=== PATIENT | male | born 1935 | race African-American/Black ===

== ENCOUNTER 2018-08-27 17:04 | Emergency (ER) | payer MEDICARE, MEDICAID ==
[~2018-08-27] VITALS: Ht 175.3 cm; Wt 73.0 kg
[~2018-08-27 17:04] MED LIST: FLUT1DIS INH; LORA10TA7 PO
[2018-08-27 20:00] LABS: CLARITY URINE TURBID (CLEAR); COLOR URINE ORANGE (YELLOW); KETONES URINE NEGATIVE (NEGATIVE); LEUKOCYTE ESTERASE URINE 3+ (NEGATIVE); NITRITE URINE NEGATIVE (NEGATIVE); OCCULT BLOOD URINE 3+ (NEGATIVE); PH URINE 7.5 (4.5-8.0); PROTEIN URINE 4+ (NEGATIVE); SPECIFIC GRAVITY URINE 1.018 (1.005-1.030)
[2018-08-27 20:50] VITALS: BP 154/84
[2018-09-02] MEDS ORDERED: ASPI-1159 PO (05:14)
[2018-09-02] MEDS ORDERED: AMLO10TA80 PO (05:14)
[2018-09-02] MEDS ORDERED: MONT10TA24 PO (05:14)
== END 2018-08-27 20:53 | disposition home or self-care (01) ==
LOC: ER 17:04
DX: N40.1 Benign prostatic hyperplasia with lower urinary tract symptoms (principal); R33.8 Other retention of urine; N39.0 Urinary tract infection, site not specified
CPT/HCPCS: 51702; 87077; 87186; 99284; A4315

== ENCOUNTER 2019-04-01 14:42 | Emergency (ER) | payer MEDICARE, MEDICAID ==
[~2019-04-01] VITALS: Ht 175.3 cm; Wt 73.0 kg
[~2019-04-01 14:42] MED LIST changes: +AMLO10TA80 PO; +ASPI-1159 PO; +MONT10TA24 PO
[2019-04-01] MEDS ORDERED: METHYLPREDNISOLONE SOD SUCC 125 MG/2 ML VIAL IV STA (15:29)
[2019-04-01] MEDS ORDERED: IPRATROPIUM BROMIDE (0.02%) 0.5MG/2.5ML NEB HHN STA (15:29)
[2019-04-01] MEDS ORDERED: ALBUTEROL (0.083%) 2.5MG/3ML NEB HHN STA (15:29)
[2019-04-01] MEDS ORDERED: MAGNESIUM 2 G PREMIX 50 ML IV ONE (15:30)
[2019-04-01 16:06] LABS: HEMATOCRIT. 39.9 % (42.0-52.0); HEMOGLOBIN. 13.1 g/dL (14.0-18.0); MEAN CORPUSCULAR HEMOGLOBIN 27.5 pg (28.0-32.0); MEAN CORPUSCULAR VOLUME 83.7 fL (80.0-94.0); PLATELET 257 x1000/uL (130-400); RED BLOOD CELL COUNT 4.76 mill/uL (4.7-6.1); RED CELL DISTRIBUTION WIDTH 16.6 % (11.6-14.6)
[2019-04-01 16:12] LABS: CHLORIDE 106 mEq/L (98-107)
[2019-04-01 16:14] LABS: INR 1.1; PARTIAL THROMBOPLASTIN TIME 30.7 sec (23.4-31.0); PROTHROMBIN TIME 11.2 sec (9.6-11.0)
[2019-04-01] MEDS ORDERED: PREDNISONE 20MG TABLET PO ONE (17:15)
[2019-04-01 17:29] LABS: PLATELET ESTIMATE NORMAL
[2019-04-01 18:41] VITALS: BP 117/70
== END 2019-04-01 18:53 | disposition home or self-care (01) ==
LOC: ER 15:56 → CANBEDREQ 20:53
DX: J44.1 Chronic obstructive pulmonary disease with (acute) exacerbation (principal); I10 Essential (primary) hypertension
CPT/HCPCS: 36415; 71045; 80053; 83605; 83690; 83880; 84145; 84484; 85025; 85610; 85730; 87040; 93005; 94644; 96365; 96375; 99285; J2930; J3475; J7512; J7611

== ENCOUNTER → 2022-02-06 | Outpatient (CLI) | payer MEDICARE, MEDICAID ==
[~2022-02-06] MED LIST changes: -ASPI-1159 PO; +ASPI-1497 PO; -MONT10TA24 PO; +MONT10TA32 PO
== END | disposition home or self-care (01) ==
LOC: CT 09:22
PROVIDERS: ATTEND Internal Medicine Critical Care Medicine
DX: J44.9 Chronic obstructive pulmonary disease, unspecified (principal); J98.11 Atelectasis; R59.0 Localized enlarged lymph nodes; K44.9 Diaphragmatic hernia without obstruction or gangrene; I70.0 Atherosclerosis of aorta; J92.9 Pleural plaque without asbestos
CPT/HCPCS: 71250

== ENCOUNTER → 2023-03-16 | Outpatient (CLI) | payer MEDICARE, MEDICAID ==
[~2023-03-16] MED LIST changes: +MONT-39 PO; -MONT10TA32 PO
== END | disposition home or self-care (01) ==
LOC: CT 10:28
PROVIDERS: ATTEND Internal Medicine Critical Care Medicine
DX: R05.3 Chronic cough (principal)
CPT/HCPCS: 71250

== ENCOUNTER 2023-05-13 11:25 | Inpatient (IN) | payer MEDICARE, MEDICAID ==
[~2023-05-13] VITALS: Ht 177.8 cm; Wt 68.9 kg
[2023-05-13] MEDS ORDERED: IPRATROPIUM BROMIDE (0.02%) 0.5MG/2.5ML NEB HHN STA (11:32)
[2023-05-13] MEDS ORDERED: METHYLPREDNISOLONE SOD SUCC 125MG/2ML (ACT-O-VIAL) IV STA (11:32)
[2023-05-13] MEDS ORDERED: ALBUTEROL (0.083%) 2.5MG/3ML NEB HHN STA (11:32)
[2023-05-13] MEDS ORDERED: MAGNESIUM 2 G PREMIX 50 ML IV ONE (11:45)
[2023-05-13 12:20] VITALS: PULSE 87; RESP 24; O2SAT 94
[2023-05-13 12:24] LABS: BG CARBOXYHEMOGLOBIN 1.2 % (0.5-1.5); BG DEOXYHEMOGLOBIN 5.6 % (0.0-5.0); BG FRACTION INSPIRED OXYGEN 21; BG HCO3 ACT 25.8 mmol/L (22.0-26.0); BG METHEMOGLOBIN 0.2 % (0.0-1.5); BG OXYGEN SATURATION 94.3 % (92.0-98.5); BG PCO2 41.5 mmHg (35.0-45.0); BG PH 7.411 (7.350-7.450); BG PO2 71.3 mmHg (75.0-100.0); BG SAMPLE SITE LEFT RADIAL; BG TOTAL HEMOGLOBIN 14.2 g/dL (12.0-18.0); BG VENT MODE ROOM AIR
[2023-05-13] MEDS ORDERED: ONDANSETRON HCL 4MG/2ML INJ IV ONE (12:30)
[2023-05-13 12:36] LABS: BASOPHILS % 0.8 % (0.0-2.0); EOSINOPHILS % 3.1 % (0.0-5.0); HEMATOCRIT. 41.4 % (42.0-52.0); HEMOGLOBIN. 13.7 g/dL (14.0-18.0); LYMPHOCYTES % 41.3 % (20.0-50.0); MEAN CORPUSCULAR HEMOGLOBIN 27.9 pg (28.0-32.0); MEAN CORPUSCULAR VOLUME 84.2 fL (80.0-94.0); MEAN PLATELET VOLUME 7.8 fl (7.4-10.4); NEUTROPHILS % 45.8 % (40.0-76.0); PLATELET 282 x1000/uL (130-400); RED BLOOD CELL COUNT 4.92 mill/uL (4.7-6.1); RED CELL DISTRIBUTION WIDTH 13.9 % (11.6-14.6)
[2023-05-13 12:49] LABS: INR 1.2; PROTHROMBIN TIME 12.5 sec (9.6-11.0)
[2023-05-13 12:51] LABS: CHLORIDE 105 mEq/L (98-107)
[2023-05-13 13:03] LABS: CREATINE KINASE 207 IU/L (39-308); ETHANOL BLOOD < 10 mg/dL (-10)
[2023-05-13] MEDS ORDERED: IOHEXOL-350 100 ML BOTTLE ONE (13:08)
[2023-05-13] MEDS ORDERED: DOCUSATE SODIUM 100MG CAPSULE PO PRN (14:45)
[2023-05-13] MEDS ORDERED: HYDROCODONE/ACETAMINOPHEN 5/325MG TABLET PO PRN (14:45)
[2023-05-13] MEDS ORDERED: TRAMADOL 50MG TABLET PO PRN (14:45)
[2023-05-13] MEDS ORDERED: ACETAMINOPHEN 650MG SUPP PR PRN (14:45)
[2023-05-13] MEDS ORDERED: NALOXONE HCL 0.4MG/ML VIAL IV PRN (14:45)
[2023-05-13] MEDS ORDERED: IPRATROPIUM/ALBUTEROL 0.5-3(2.5)MG/3ML NEB HHN PRN (14:45)
[2023-05-13] MEDS ORDERED: GUAIFENESIN 200MG/10ML SUGAR FREE UDC PO PRN (14:45)
[2023-05-13] MEDS ORDERED: ONDANSETRON HCL 4MG/2ML INJ IV PRN (14:45)
[2023-05-13 15:30] VITALS: BP 142/78; PULSE 75; RESP 18; TEMP 97.5
[2023-05-13] MEDS: MONTELUKAST SODIUM 10MG TABLET PO SCH (17:38)
[2023-05-13] MEDS: ENOXAPARIN 40MG/0.4ML SYR SUBCUT SCH (17:38)
[2023-05-13 20:00] VITALS: BP 126/66; PULSE 71; RESP 18; TEMP 97.2
[2023-05-13] MEDS: ATORVASTATIN CALCIUM 40MG TABLET PO SCH (21:05)
[2023-05-14] VITALS: BP 134/81; PULSE 57; RESP 20; TEMP 98.3
[2023-05-14 04:00] VITALS: BP 125/78; PULSE 57; RESP 18; TEMP 98.1
[2023-05-14 05:50] LABS: BASOPHILS % 0.1 % (0.0-2.0); HEMATOCRIT. 41.8 % (42.0-52.0); HEMOGLOBIN. 13.7 g/dL (14.0-18.0); LYMPHOCYTES % 22.7 % (20.0-50.0); MEAN CORPUSCULAR HEMOGLOBIN 27.8 pg (28.0-32.0); MEAN CORPUSCULAR VOLUME 84.6 fL (80.0-94.0); MEAN PLATELET VOLUME 8.1 fl (7.4-10.4); MONOCYTES % 5.9 % (2.0-8.0); NEUTROPHILS % 71.3 % (40.0-76.0); PLATELET 307 x1000/uL (130-400); RED BLOOD CELL COUNT 4.94 mill/uL (4.7-6.1); RED CELL DISTRIBUTION WIDTH 13.9 % (11.6-14.6)
[2023-05-14 06:01] LABS: CHLORIDE 104 mEq/L (98-107)
[2023-05-14 06:10] LABS: HDL CHOLESTEROL 72 mg/dL (40-59); LDL CHOLESTEROL 123 mg/dL (5-100)
[2023-05-14 08:00] VITALS: BP 120/69; PULSE 61; RESP 18; TEMP 97.5
[2023-05-14] MEDS ORDERED: ASPIRIN 81MG TABLET PO SCH (09:15)
[2023-05-14 12:00] VITALS: BP 116/68; PULSE 56; RESP 18; TEMP 97.6
[2023-05-14 17:58] LABS: CLARITY URINE CLEAR (CLEAR); COLOR URINE YELLOW (YELLOW); KETONES URINE NEGATIVE (NEGATIVE); LEUKOCYTE ESTERASE URINE NEGATIVE (NEGATIVE); NITRITE URINE NEGATIVE (NEGATIVE); OCCULT BLOOD URINE NEGATIVE (NEGATIVE); PH URINE 5.5 (4.5-8.0); PROTEIN URINE NEGATIVE (NEGATIVE); SPECIFIC GRAVITY URINE 1.027 (1.005-1.030); UROBILINOGEN URINE 0.2 E.U./dL (0.2-1.0)
[2023-05-14] MEDS: MONTELUKAST SODIUM 10MG TABLET PO SCH (18:00)
[2023-05-14] MEDS: ENOXAPARIN 40MG/0.4ML SYR SUBCUT SCH (18:01)
[2023-05-14 18:11] LABS: *AMPHETAMINES SCREEN URINE NEGATIVE (NEGATIVE); *BARBITURATES SCREEN URINE NEGATIVE (NEGATIVE); *BENZODIAZEPINES SCREEN URINE NEGATIVE (NEGATIVE); *COCAINE SCREEN URINE NEGATIVE (NEGATIVE); CANNABINOID URINE SCREEN NEGATIVE (NEGATIVE); METHADONE URINE SCREEN NEGATIVE (NEGATIVE); OPIATES URINE SCREEN NEGATIVE (NEGATIVE); PHENCYCLIDINE URINE SCREEN NEGATIVE (NEGATIVE)
[2023-05-14 20:00] VITALS: BP 120/61; PULSE 70; RESP 18; TEMP 97.2
[2023-05-14] MEDS: ATORVASTATIN CALCIUM 40MG TABLET PO SCH (20:54)
[2023-05-14] MEDS ORDERED: AMLODIPINE 5MG TABLET PO SCH (21:00)
[2023-05-15] VITALS: BP 130/76; PULSE 72; RESP 18; TEMP 97.9
== END 2023-05-15 01:00 | disposition left against medical advice (07) | DRG 66 ==
LOC: ER 11:25 → 7WST 12:39
PROVIDERS: ADMIT Hospitalist; ATTEND Hospitalist
DX: I63.9 Cerebral infarction, unspecified (principal); I10 Essential (primary) hypertension; J44.9 Chronic obstructive pulmonary disease, unspecified; N40.0 Benign prostatic hyperplasia without lower urinary tract symptoms; R29.703 NIHSS score 3; Z20.822 Contact with and (suspected) exposure to COVID-19; Z53.29 Procedure and treatment not carried out because of patient's decision for other reasons; Z79.82 Long term (current) use of aspirin; Z87.891 Personal history of nicotine dependence; Z68.21 Body mass index [BMI] 21.0-21.9, adult; Z79.899 Other long term (current) drug therapy
CPT/HCPCS: 36415; 36600; 70496; 70498; 70551; 71045; 80053; 80061; 80305; 80320; 81003; 82375; 82550; 82805; 82962; 83605; 83880; 84484; 85025; 86850; 86900; 87426; 93005; 93970; 94664; 97162; 97535; 99291; C9803; J1650; J2405; J2930; J3475; Q9967; G0480